=== PATIENT | female | born 2000 | race Caucasian/White ===

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

== ENCOUNTER 2018-01-16 06:02 | Emergency (ER) | payer OTHER, MEDICAID ==
[2018-01-16 06:43] LABS: ACETAMINOPHEN 146.7; ANION GAP 13.9; CHLORIDE,CL 108 mmol/L (101-111); SODIUM,NA 141 mmol/L (135-145)
[2018-01-16] MEDS ORDERED: Ondansetron 4 MG/2 ML SDV IV ONE (06:44)
[2018-01-16] MEDS ORDERED: Sodium Chloride 0.9% 1,000 ML IV SCH (06:45)
[2018-01-16] MEDS ORDERED: Potassium Chloride 10 MEQ in Premix Bag 1 BAG IV ONE (06:45)
--- NOTE | 2018-01-16 06:49 | EDM.PDOCBH ---
<Ina Mack Deepak - Last Filed: 01/16/18 07:04> ED HPI GENERAL MEDICAL PROBLEM - General Chief Complaint: Drug or Alcohol Abuse Stated Complaint: OVERDOSE [phone] Time Seen by Provider: 01/16/18 06:30 Source of Information: Reports: Patient, Family, RN Notes Reviewed History Limitations: Reports: No Limitations - History of Present Illness INITIAL COMMENTS - FREE TEXT/NARRATIVE: ED with "Anty" States patient texted 1 hour prior that she had taken a bunch of pill ( approximately 30 ibuprofen", Patient admits trying to hurt self. Has tried twicwe prior last one year ago. Is not on medication, No counseling. ETOH tonight few bears, Dev Francois shots and few mixed drinks. - Related Data Allergies Allergy/AdvReac Type Severity Reaction Status Date / Time No Known Allergies Allergy Verified 01/16/18 06:11 Home Meds: Home Meds . [No Known Home Meds] 05/31/13 [History] Past Medical History - Past Health History Medical/Surgical History: Denies Medical/Surgical History HEENT History: Reports: Impaired Vision Cardiovascular History: Reports: None Respiratory History: Reports: None Gastrointestinal History: Reports: None Genitourinary History: Reports: None [employer] History: Reports: None Musculoskeletal History: Reports: None Neurological History: Reports: None Psychiatric History: Reports: Addiction, Anxiety, Suicide Attempt, Suicidal Ideation Endocrine/Metabolic History: Reports: None Hematologic History: Reports: None Immunologic History: Reports: None Oncologic (Cancer) History: Reports: None Dermatologic History: Reports: None Social & Family History - Family History Family Medical History: Noncontributory - Tobacco Use Smoking Status *Q: Current Every Day Smoker Years of Tobacco use: 5 Packs/Tins Daily: 0.7 - Caffeine Use Caffeine Use: Reports: Coffee, Soda - Recreational Drug Use Recreational Drug Use: No ED EXAM, BEHAVIORAL HEALTH - Physical Exam Exam: See Below Exam Limited By: No Limitations General Appearance: Alert, Mild Distress Eye Exam: Bilateral Eye: EOMI, PERRL Throat/Mouth: Normal Inspection Head: Atraumatic, Normocephalic Neck: Normal Inspection Respiratory/Chest: No Respiratory Distress, Lungs Clear Cardiovascular: Normal Peripheral Pulses, Regular Rate, Rhythm GI/Abdominal: Normal Bowel Sounds, Other (dry heaves) Extremities: Normal Inspection, Normal Range of Motion Neurological: Alert, Normal Cognition, Normal Gait, Oriented x 3, Slow Response to Commands Psychiatric: Alert, Oriented, Flat Affect, Suicidal Thoughts, Other (avoidant eye contact) Skin Exam: Warm, Dry, Intact, Normal color COURSE, BEHAVIORAL HEALTH COMP - Course Vital Signs: Last Vital Signs Temp 37.1 C 01/16/18 06:05 Pulse 103 H 01/16/18 06:05 Resp 18 01/16/18 06:05 BP 127/84 01/16/18 06:05 Pulse Ox 99 01/16/18 06:05 Orders, Labs, Meds: Active Orders 24 hr Category Date Time Status EKG Documentation Completion [RC] STAT Care 01/16/18 06:14 Active Peripheral IV Care [RC] . DIRECTED Care 01/16/18 07:30 Active ACETAMINOPHEN [CHEM] Stat Lab 01/16/18 10:30 Ordered BASIC METABOLIC PANEL,BMP [CHEM] Stat Lab 01/16/18 10:30 Ordered DRUG SCREEN URINE BIORAD [URCHEM] Stat Lab 01/16/18 06:56 Ordered HCG QUALITATIVE,URINE [URCHEM] Stat Lab 01/16/18 06:56 Ordered INR,PT,PROTHROMBIN TIME [COAG] Stat Lab 01/16/18 07:46 Ordered PTT,PARTIAL THROMBOPLSTIN TIME [COAG] Stat Lab 01/16/18 07:46 Ordered UA W/MICROSCOPIC [URIN] Stat Lab 01/16/18 06:56 Ordered Sodium Chloride 0.9% [Normal Saline] 1,000 ml Med 01/16/18 07:30 Active IV .BOLUS Sodium Chloride 0.9% [Normal Saline] 1,000 ml Med 01/16/18 06:45 Active IV ASDIRECTED Sodium Chloride 0.9% [Saline Flush] Med 01/16/18 07:30 Active 10 ml FLUSH ASDIRECTED PRN Peripheral IV Insertion Adult [OM.PC] Stat Oth 01/16/18 07:30 Ordered Suicide Precautions [OM.PC] Routine Oth 01/16/18 07:33 Ordered Medication Orders Sodium Chloride (Normal Saline) 1,000 mls @ 200 mls/hr IV ASDIRECTED CHU Last Admin: 01/16/18 06:37 Dose: 200 mls/hr Sodium Chloride (Normal Saline) 1,000 mls @ 999 mls/hr IV .BOLUS ONE Stop: 01/16/18 08:30 Sodium Chloride (Saline Flush) 10 ml FLUSH ASDIRECTED PRN PRN Reason: Keep Vein Open Laboratory Tests 01/16/18 01/16/18 01/16/18 Range/Units 06:13 06:13 06:56 WBC 7.2 (5.0-10.0) 10^3/uL RBC 4.42 (4.2-5.4) 10^6/uL Hgb 13.5 (12.0-16.0) g/dL Hct 40.1 (37.0-47.0) % MCV 90.7 (80-100) fL MCH 30.5 (27.0-34.0) pg MCHC 33.7 (33.0-35.0) g/dL Plt Count 265 (150-450) 10^3/uL Neut % (Auto) 49.4 (42.2-75.2) % Lymph % (Auto) 41.9 (20.5-50.1) % [place] % (Auto) 6.2 (2-8) % Eos % (Auto) 2.4 (1.0-3.0) % Baso % (Auto) 0.1 (0.0-1.0) % Sodium 141 (135-145) mmol/L Potassium 2.9 L (3.6-5.0) mmol/L Chloride 108 (101-111) mmol/L Carbon Dioxide 22.0 (21.0-31.0) mmol/L Anion Gap 13.9 BUN 7 (7-18) mg/dL Creatinine 0.6 (0.6-1.3) mg/dL Est Cr Clr Drug Dosing 129.59 mL/min Estimated GFR (MDRD) > 60 BUN/Creatinine Ratio 11.66 Glucose 132 H (74-105) mg/dL Calcium 8.7 (8.4-10.2) mg/dl Total Bilirubin 0.3 (0.2-1.0) mg/dL AST 24 (10-42) IU/L ALT 22 (10-60) IU/L Alkaline Phosphatase 75 (42-121) IU/L Total Protein 7.8 (6.7-8.2) g/dl Albumin 4.3 (3.2-5.5) g/dl Globulin 3.5 Albumin/Globulin Ratio 1.23 Urine Color Yellow (YELLOW) Urine Appearance Clear (CLEAR) Urine pH 6.5 (5.0-9.0) Ur Specific [place] <= 1.005 (1.005-1.030) Urine Protein Negative (NEGATIVE) Urine Glucose (UA) Negative (NEGATIVE) Urine Ketones Negative (NEGATIVE) Urine Occult Blood Negative (NEGATIVE) Urine Nitrite Negative (NEGATIVE) Urine Bilirubin Negative (NEGATIVE) Urine Urobilinogen 0.2 (0.2-1.0) mg/dL Ur Leukocyte Esterase Negative (NEGATIVE) Urine RBC Not seen /HPF Urine WBC Not seen (0-5/HPF) /HPF Ur Epithelial Cells Few /HPF Urine Bacteria Not seen (0-FEW/HPF) /HPF Urine Mucus Rare /LPF Urine HCG, Qual Salicylates < 4 Urine Opiates Screen (NEGATIVE) Ur Oxycodone Screen (NEGATIVE) Urine Methadone Screen (NEGATIVE) Acetaminophen 146.7 Ur Barbiturates Screen (NEGATIVE) U Tricyclic Antidepress (NEGATIVE) Ur Phencyclidine Scrn (NEGATIVE) Ur Amphetamine Screen (NEGATIVE) U Methamphetamines Scrn (NEGATIVE) Urine MDMA Screen (NEGATIVE) U Benzodiazepines Scrn (NEGATIVE) Urine Cocaine Screen (NEGATIVE) U Marijuana (THC) Screen (NEGATIVE) Ethyl Alcohol 149 mg/dL 01/16/18 01/16/18 Range/Units 06:56 06:56 WBC (5.0-10.0) 10^3/uL RBC (4.2-5.4) 10^6/uL Hgb (12.0-16.0) g/dL Hct (37.0-47.0) % MCV (80-100) fL MCH (27.0-34.0) pg MCHC (33.0-35.0) g/dL Plt Count (150-450) 10^3/uL Neut % (Auto) (42.2-75.2) % Lymph % (Auto) (20.5-50.1) % [place] % (Auto) (2-8) % Eos % (Auto) (1.0-3.0) % Baso % (Auto) (0.0-1.0) % Sodium (135-145) mmol/L Potassium (3.6-5.0) mmol/L Chloride (101-111) mmol/L Carbon Dioxide (21.0-31.0) mmol/L Anion Gap BUN (7-18) mg/dL Creatinine (0.6-1.3) mg/dL Est Cr Clr Drug Dosing mL/min Estimated GFR (MDRD) BUN/Creatinine Ratio Glucose (74-105) mg/dL Calcium (8.4-10.2) mg/dl Total Bilirubin (0.2-1.0) mg/dL AST (10-42) IU/L ALT (10-60) IU/L Alkaline Phosphatase (42-121) IU/L Total Protein (6.7-8.2) g/dl Albumin (3.2-5.5) g/dl Globulin Albumin/Globulin Ratio Urine Color (YELLOW) Urine Appearance (CLEAR) Urine pH (5.0-9.0) Ur Specific [place] (1.005-1.030) Urine Protein (NEGATIVE) Urine Glucose (UA) (NEGATIVE) Urine Ketones (NEGATIVE) Urine Occult Blood (NEGATIVE) Urine Nitrite (NEGATIVE) Urine Bilirubin (NEGATIVE) Urine Urobilinogen (0.2-1.0) mg/dL Ur Leukocyte Esterase (NEGATIVE) Urine RBC /HPF Urine WBC (0-5/HPF) /HPF Ur Epithelial Cells /HPF Urine Bacteria (0-FEW/HPF) /HPF Urine Mucus /LPF Urine HCG, Qual Negative Salicylates Urine Opiates Screen Negative (NEGATIVE) Ur Oxycodone Screen Negative (NEGATIVE) Urine Methadone Screen Negative (NEGATIVE) Acetaminophen Ur Barbiturates Screen Negative (NEGATIVE) U Tricyclic Antidepress Negative (NEGATIVE) Ur Phencyclidine Scrn Negative (NEGATIVE) Ur Amphetamine Screen Negative (NEGATIVE) U Methamphetamines Scrn Negative (NEGATIVE) Urine MDMA Screen Negative (NEGATIVE) U Benzodiazepines Scrn Negative (NEGATIVE) Urine Cocaine Screen Negative (NEGATIVE) U Marijuana (THC) Screen Negative (NEGATIVE) Ethyl Alcohol mg/dL Medications Generic Name Dose Route Start Last Admin Trade Name Freq PRN Reason Stop Dose Admin Sodium Chloride 1,000 mls @ 200 mls/hr 01/16/18 06:45 01/16/18 06:37 Normal Saline IV 200 mls/hr ASDIRECTED CHU Administration Sodium Chloride 1,000 mls @ 999 mls/hr 01/16/18 07:30 Normal Saline IV 01/16/18 08:30 .BOLUS ONE Sodium Chloride 10 ml 01/16/18 07:30 Saline Flush FLUSH ASDIRECTED PRN Keep Vein Open Discontinued Medications Generic Name Dose Route Start Last Admin Trade Name Freq PRN Reason Stop Dose Admin Acetylcysteine 8,250 mg 01/16/18 07:23 Acetadote 20% IV 01/16/18 07:24 ONETIME ONE Acetylcysteine 2,750 mg 01/16/18 07:28 Acetadote 20% IV 01/16/18 07:29 ONETIME ONE Charcoal 50 gm 01/16/18 07:30 01/16/18 07:42 Actidose-Aqua PO 01/16/18 07:31 50 gm ONETIME ONE Administration Potassium Chloride 10 meq/ 100 mls @ 100 mls/hr 01/16/18 06:45 01/16/18 06:50 Premix IV 01/16/18 07:44 100 mls/hr ONETIME ONE Administration Ondansetron HCl 4 mg 01/16/18 06:44 01/16/18 06:47 Zofran IV 01/16/18 06:45 4 mg ONETIME ONE Administration Departure - Departure Disposition: DC/Tfer to [facility] 02 Clinical Impression: Depressive disorder, Hypokalemia Acetaminophen overdose Qualifiers: Encounter type: initial encounter Injury intent: intentional self-harm Qualified Code(s): T39.1X2A - Poisoning by 4-Aminophenol derivatives, intentional self-harm, initial encounter Suicide attempt by acetaminophen overdose Qualifiers: Encounter type: initial encounter Qualified Code(s): T39.1X2A - Poisoning by 4- Aminophenol derivatives, intentional self-harm, initial encounter Acute alcohol intoxication Qualifiers: Complication of substance-induced condition: with unspecified complication Qualified Code(s): F10.929 - Alcohol use, unspecified with intoxication, unspecified - Discharge Information Forms: ED Department Discharge, Interfacility Transfer EMTALA - My Orders Last 24 Hours: My Active Orders 01/16/18 07:30 Peripheral IV Care [RC] . DIRECTED Sodium Chloride 0.9% [Normal Saline] 1,000 ml IV .BOLUS Sodium Chloride 0.9% [Saline Flush] 10 ml FLUSH ASDIRECTED PRN Peripheral IV Insertion Adult [OM.PC] Stat 01/16/18 07:33 Suicide Precautions [OM.PC] Routine 01/16/18 07:46 INR,PT,PROTHROMBIN TIME [COAG] Stat PTT,PARTIAL THROMBOPLSTIN TIME [COAG] Stat - Assessment/Plan Last 24 Hours: My Active Orders 01/16/18 07:30 Peripheral IV Care [RC] . DIRECTED Sodium Chloride 0.9% [Normal Saline] 1,000 ml IV .BOLUS Sodium Chloride 0.9% [Saline Flush] 10 ml FLUSH ASDIRECTED PRN Peripheral IV Insertion Adult [OM.PC] Stat 01/16/18 07:33 Suicide Precautions [OM.PC] Routine 01/16/18 07:46 INR,PT,PROTHROMBIN TIME [COAG] Stat PTT,PARTIAL THROMBOPLSTIN TIME [COAG] Stat <Franki Morales - Last Filed: 01/16/18 08:12> ED HPI GENERAL MEDICAL PROBLEM - General Source of Information: Reports: Old Records - History of Present Illness INITIAL COMMENTS - FREE TEXT/NARRATIVE: I assumed care of pt from Ina MABRY at 0700HR shift change. It has now been determined that the pt took Acetaminophen 500mg #30 tablets (15g) at approx. 0530HRS this morning. She admits to drinking about 4 beers and a few other drinks between last evening and 0330HRS this morning. Pt denies taking any other medications, drugs, or chemicals. Pt has a Hx of multiple prior suicide attempts. Onset: Today Onset Date: 01/16/18 Onset Time: 05:30 Location: Reports: Generalized Quality: Reports: Other (denies pain) Severity: Severe Improves with: Reports: None Worsens with: Reports: None Associated Symptoms: Reports: No Other Symptoms Past Medical History Psychiatric History: Reports: Depression Social & Family History - Alcohol Use Alcohol Use History: Yes Alcohol Use Frequency: Binges - Living Situation & Occupation Living situation: Reports: with Family ED ROS GENERAL - Review of Systems Review Of Systems: ROS reveals no pertinent complaints other than HPI. ED EXAM, BEHAVIORAL HEALTH - Physical Exam General Appearance: WD/WN Eye Exam: Bilateral Eye: Normal Inspection Nose: Normal Inspection, Normal Mucosa, No Blood Throat/Mouth: Normal Inspection, Normal Lips, Normal Teeth, Normal Gums, Normal Oropharynx, Normal Voice, No Airway Compromise Head: Atraumatic, Normocephalic Neck: Normal Inspection, Supple, Non-Tender, Full Range of Motion Respiratory/Chest: No Respiratory Distress, Lungs Clear, Normal Breath Sounds, No Accessory Muscle Use, Chest Non-Tender Cardiovascular: Regular Rate, Rhythm, Tachycardia GI/Abdominal: Normal Bowel Sounds, Soft, No Distention, Tender (mild epigastric tenderness) (Female) Exam: Deferred Rectal (Female) Exam: Deferred Back Exam: Normal Inspection Neurological: Alert, CN II-XII Intact, Normal Cognition, No Motor/Sensory Deficits, Oriented x 3 Psychiatric: Oriented, Depressed Mood, Flat Affect, Tearful, Suicidal Plan, Suicidal Thoughts Skin Exam: Warm, Dry, Intact, Normal color, No rash. No: Diaphoretic, Ecchymosis, Needle kent, Petechiae, Signs of self injury, Wound/incision EKG INTERPRETATION EKG Date: 01/16/18 Time: 06:10 Rhythm: Other (SR) Rate (Beats/Min): 99 [place]: Normal P-Wave: Present QRS: Normal ST-T: Normal QT: Normal Comparison: NA - No Prior EKG COURSE, BEHAVIORAL HEALTH COMP - Course Discharge vs Psych Eval/Treatment:: 01/16/18 07:56 Acetaminophen level at approx. 1 hour post ingestion 146.7 therefore NAC IV protocol initiated w/1st bag 150mg/kg (8250mg) IV over one hour, and 2nd bag 50mg/kg over 4 hours. Pt will be transferred to [facility] with Dr. Camp accepting. Departure - Departure Time of Disposition: 08:00 Condition: Serious
[2018-01-16] MEDS ORDERED: Acetylcysteine 20% 200 MG/ML 30 ML SDV IV ONE ×2 (07:23→07:28)
[2018-01-16] MEDS ORDERED: Sodium Chloride 0.9% 1,000 ML IV ONE (07:30)
[2018-01-16] MEDS ORDERED: Sodium Chloride 0.9% 10 ML Syringe FLUSH PRN (07:30)
[2018-01-16] MEDS ORDERED: Activated Charcoal/Water Susp 50 GM/240 ML Tube PO ONE (07:30)
[2018-01-16 08:07] VITALS: BP 110/85
[2018-01-16 10:37] LABS: ACETAMINOPHEN 51.1; ANION GAP 11.5; CHLORIDE,CL 109 mmol/L (101-111); SODIUM,NA 138 mmol/L (135-145)
--- NOTE | 2018-01-19 08:56 | EKG ---
01/16/2018- ANNAMARIA GARNETT - FINDINGS: A 12-lead EKG shows normal sinus rhythm with no significant ST elevation or ST depression noted on this 12-lead EKG except for nonspecific ST-T wave changes noted on lead V1. [facility] /[id number]
== END 2018-01-16 10:18 ==
LOC: DL.ED 06:02
DX: T39.1X2A Poisoning by 4-Aminophenol derivatives, intentional self-harm, initial encounter (principal); F10.129 Alcohol abuse with intoxication, unspecified; F17.210 Nicotine dependence, cigarettes, uncomplicated; Y90.6 Blood alcohol level of 120-199 mg/100 ml
CPT/HCPCS: 36415; 80048; 80053; 80305; 81001; 81025; 85025; 85610; 85730; 93005; 93010; 96365; 96366; 96367; 96375; 99284; 99285; G0480; J2405; J3480; J7030; J7050

== ENCOUNTER 2018-02-04 17:43 | Emergency (ER) | payer MEDICAID ==
[2018-02-04 18:17] VITALS: BP 118/73
[2018-02-04 19:06] LABS: ANION GAP 14.6; CHLORIDE,CL 102 mmol/L (101-111); SODIUM,NA 139 mmol/L (135-145)
--- NOTE | 2018-02-04 19:18 | EDM.PDOC ---
ED HPI GENERAL MEDICAL PROBLEM - General Chief Complaint: [employer] Problem Stated Complaint: VAGINAL BLEADING [id number] Time Seen by Provider: 02/04/18 19:11 Source of Information: Reports: Patient History Limitations: Reports: No Limitations - History of Present Illness INITIAL COMMENTS - FREE TEXT/NARRATIVE: c/o vag bleeding today. had period last week. just started on BCP. c/o some cramping. - Related Data Allergies Allergy/AdvReac Type Severity Reaction Status Date / Time No Known Allergies Allergy Verified 01/16/18 06:11 Home Meds: Home Meds . [No Known Home Meds] 05/31/13 [History] Past Medical History - Past Health History Medical/Surgical History: Denies Medical/Surgical History HEENT History: Reports: Impaired Vision Cardiovascular History: Reports: None Respiratory History: Reports: None Gastrointestinal History: Reports: None Genitourinary History: Reports: None [employer] History: Reports: None Musculoskeletal History: Reports: None Neurological History: Reports: None Psychiatric History: Reports: Addiction, Anxiety, Suicide Attempt, Suicidal Ideation Endocrine/Metabolic History: Reports: None Hematologic History: Reports: None Immunologic History: Reports: None Oncologic (Cancer) History: Reports: None Dermatologic History: Reports: None Social & Family History - Family History Family Medical History: Noncontributory - Tobacco Use Smoking Status *Q: Current Every Day Smoker Years of Tobacco use: 2 Packs/Tins Daily: 0.2 - Caffeine Use Caffeine Use: Reports: Soda, Tea - Alcohol Use Days Per Week of Alcohol Use: 2 Number of Drinks Per Day: 6 Total Drinks Per Week: 12 - Recreational Drug Use Recreational Drug Use: No - Living Situation & Occupation Living situation: Reports: with Family ED ROS GENERAL - Review of Systems Review Of Systems: ROS reveals no pertinent complaints other than HPI. ED EXAM, GI/ABD - Physical Exam Exam: See Below Exam Limited By: No Limitations General Appearance: Alert, WD/WN, No Apparent Distress Ears: Hearing Grossly Normal Throat/Mouth: Normal Voice, No Airway Compromise Head: Atraumatic Neck: Non-Tender, Full Range of Motion Respiratory/Chest: No Respiratory Distress Cardiovascular: Regular Rate, Rhythm GI/Abdominal Exam: Soft, Non-Tender Neurological: Alert, Oriented, Normal Cognition, Normal Gait, No Motor/Sensory Deficits Psychiatric: Normal Affect, Normal Mood Skin Exam: Warm, Dry, Normal Color Lymphatic: No Adenopathy Course - Vital Signs Last Recorded V/S: Last Vital Signs Temp 37.3 C 02/04/18 18:16 Pulse 101 H 02/04/18 18:16 Resp 16 02/04/18 18:16 BP 118/73 02/04/18 18:16 Pulse Ox 100 02/04/18 18:16 - Orders/Labs/Meds Orders: Active Orders 24 hr Category Date Time Status DRUG SCREEN URINE BIORAD [URCHEM] Stat Lab 02/04/18 18:45 Ordered HCG QUALITATIVE,URINE [URCHEM] Stat Lab 02/04/18 18:45 Ordered UA W/MICROSCOPIC [URIN] Stat Lab 02/04/18 18:44 Ordered Labs: Laboratory Tests 02/04/18 02/04/18 02/04/18 Range/Units 18:38 18:38 18:44 WBC 5.3 (5.0-10.0) 10^3/uL RBC 4.68 (4.2-5.4) 10^6/uL Hgb 14.2 (12.0-16.0) g/dL Hct 41.9 (37.0-47.0) % MCV 89.5 (80-100) fL MCH 30.3 (27.0-34.0) pg MCHC 33.9 (33.0-35.0) g/dL Plt Count 231 (150-450) 10^3/uL Neut % (Auto) 53.6 (42.2-75.2) % Lymph % (Auto) 34.0 (20.5-50.1) % [place] % (Auto) 8.3 H (2-8) % Eos % (Auto) 3.9 H (1.0-3.0) % Baso % (Auto) 0.2 (0.0-1.0) % Sodium 139 (135-145) mmol/L Potassium 3.6 (3.6-5.0) mmol/L Chloride 102 (101-111) mmol/L Carbon Dioxide 26.0 (21.0-31.0) mmol/L Anion Gap 14.6 BUN 9 (7-18) mg/dL Creatinine 0.7 (0.6-1.3) mg/dL Est Cr Clr Drug Dosing 111.08 mL/min Estimated GFR (MDRD) > 60 BUN/Creatinine Ratio 12.85 Glucose 85 (74-105) mg/dL Calcium 9.4 D (8.4-10.2) mg/dl Total Bilirubin 0.7 (0.2-1.0) mg/dL AST 21 (10-42) IU/L ALT 14 (10-60) IU/L Alkaline Phosphatase 73 (42-121) IU/L Total Protein 8.3 H (6.7-8.2) g/dl Albumin 4.8 (3.2-5.5) g/dl Globulin 3.5 Albumin/Globulin Ratio 1.37 Urine Color Yellow (YELLOW) Urine Appearance Clear (CLEAR) Urine pH 7.0 (5.0-9.0) Ur Specific [place] 1.015 (1.005-1.030) Urine Protein Negative (NEGATIVE) Urine Glucose (UA) Negative (NEGATIVE) Urine Ketones Negative (NEGATIVE) Urine Occult Blood Moderate H (NEGATIVE) Urine Nitrite Negative (NEGATIVE) Urine Bilirubin Negative (NEGATIVE) Urine Urobilinogen 1.0 (0.2-1.0) mg/dL Ur Leukocyte Esterase Negative (NEGATIVE) Urine RBC 5-10 H /HPF Urine WBC 0-5 (0-5/HPF) /HPF Ur Epithelial Cells Few /HPF Urine Bacteria Few (0-FEW/HPF) /HPF Urine HCG, Qual Urine Opiates Screen (NEGATIVE) Ur Oxycodone Screen (NEGATIVE) Urine Methadone Screen (NEGATIVE) Ur Barbiturates Screen (NEGATIVE) U Tricyclic Antidepress (NEGATIVE) Ur Phencyclidine Scrn (NEGATIVE) Ur Amphetamine Screen (NEGATIVE) U Methamphetamines Scrn (NEGATIVE) Urine MDMA Screen (NEGATIVE) U Benzodiazepines Scrn (NEGATIVE) Urine Cocaine Screen (NEGATIVE) U Marijuana (THC) Screen (NEGATIVE) 02/04/18 02/04/18 Range/Units 18:45 18:45 WBC (5.0-10.0) 10^3/uL RBC (4.2-5.4) 10^6/uL Hgb (12.0-16.0) g/dL Hct (37.0-47.0) % MCV (80-100) fL MCH (27.0-34.0) pg MCHC (33.0-35.0) g/dL Plt Count (150-450) 10^3/uL Neut % (Auto) (42.2-75.2) % Lymph % (Auto) (20.5-50.1) % [place] % (Auto) (2-8) % Eos % (Auto) (1.0-3.0) % Baso % (Auto) (0.0-1.0) % Sodium (135-145) mmol/L Potassium (3.6-5.0) mmol/L Chloride (101-111) mmol/L Carbon Dioxide (21.0-31.0) mmol/L Anion Gap BUN (7-18) mg/dL Creatinine (0.6-1.3) mg/dL Est Cr Clr Drug Dosing mL/min Estimated GFR (MDRD) BUN/Creatinine Ratio Glucose (74-105) mg/dL Calcium (8.4-10.2) mg/dl Total Bilirubin (0.2-1.0) mg/dL AST (10-42) IU/L ALT (10-60) IU/L Alkaline Phosphatase (42-121) IU/L Total Protein (6.7-8.2) g/dl Albumin (3.2-5.5) g/dl Globulin Albumin/Globulin Ratio Urine Color (YELLOW) Urine Appearance (CLEAR) Urine pH (5.0-9.0) Ur Specific [place] (1.005-1.030) Urine Protein (NEGATIVE) Urine Glucose (UA) (NEGATIVE) Urine Ketones (NEGATIVE) Urine Occult Blood (NEGATIVE) Urine Nitrite (NEGATIVE) Urine Bilirubin (NEGATIVE) Urine Urobilinogen (0.2-1.0) mg/dL Ur Leukocyte Esterase (NEGATIVE) Urine RBC /HPF Urine WBC (0-5/HPF) /HPF Ur Epithelial Cells /HPF Urine Bacteria (0-FEW/HPF) /HPF Urine HCG, Qual Negative Urine Opiates Screen Negative (NEGATIVE) Ur Oxycodone Screen Negative (NEGATIVE) Urine Methadone Screen Negative (NEGATIVE) Ur Barbiturates Screen Negative (NEGATIVE) U Tricyclic Antidepress Negative (NEGATIVE) Ur Phencyclidine Scrn Negative (NEGATIVE) Ur Amphetamine Screen Negative (NEGATIVE) U Methamphetamines Scrn Negative (NEGATIVE) Urine MDMA Screen Negative (NEGATIVE) U Benzodiazepines Scrn Negative (NEGATIVE) Urine Cocaine Screen Negative (NEGATIVE) U Marijuana (THC) Screen Negative (NEGATIVE) - Re-Assessments/Exams Free Text/Narrative Re-Assessment/Exam: 02/04/18 19:21 results discussed with pt. Departure - Departure Time of Disposition: 19:21 Disposition: Home, Self-Care 01 Condition: Good Clinical Impression: DUB (dysfunctional uterine bleeding) - Discharge Information Instructions: Dysfunctional Uterine Bleeding Forms: ED Department Discharge Additional Instructions: 1) rest and avoid vigorous activities 2) recheck if there is any change or concern 3) take tylenol or motrin for discomfort
== END 2018-02-04 19:27 | disposition home or self-care (01) ==
LOC: DL.ED 17:43
DX: N93.8 Other specified abnormal uterine and vaginal bleeding (principal); F17.210 Nicotine dependence, cigarettes, uncomplicated
CPT/HCPCS: 36415; 80053; 80305-QW; 81001; 81025; 85025; 99283

== ENCOUNTER 2019-09-01 01:17 | Inpatient (IN) | payer MEDICAID, OTHER ==
[2019-09-01] MEDS ORDERED: Lactated Ringers 1,000 ML IV ONE ×2 (01:36→02:24)
--- NOTE | 2019-09-01 02:20 | PCM.SN ---
- Free Text/Narrative Note: OB History and Physical 09/01/19 Chief Complaint: contractions HPI: Carolina is a 18 year old G1 at 39w3d based on 20w US who presents with contractions that started around 1900 last night. She reports they have been getting stronger and more frequent since that time. She noted she is still able to talk through some of them, but they are still getting stronger. Nothing is making them better. She reports active movement. She was monitored for 2 hours and progressed from 1+ to 3 cm dilated. ROS: Negative for headache, nausea, vomiting, diarrhea, fever, chills, hematuria , dysuria, loss of fluid or bleeding per vagina. Allergies: NKDA Medications: , iron, famotidine Medical Hx: etoh abuse, tylenol overdose, depression Surgical Hx: None Family Hx: Mom had depression and anxiety. Negative for bleeding/clotting disorders, defects or congenital anomalies. OB Hx: G1 Social Hx: Denies smoking, quit early in , h/o etoh abuse, pt currently denies. FOB is Roque Apodaca. Lives in with [facility] [place]. Physical address [phone] . Labs: Blood Type: O Positive Rubella: Immune HBSAg: Negative GBS: Negative Gonorrhea/Chlamydia: Negative HIV: Nonreactive RPR: Nonreactive Hep C: Negative Physical Exam: Vitals: 133/88, HR 90, Temp 97.3, RR 18 Gen: No distress CV: Well-perfused, 2+ distal pulses, regular rate and rhythm, no audible murmurs Resp: Non-labored, symmetrical chest expansion, clear to auscultation Abd: gravid, soft, non tender Ext: Moves all extremities, no edema. SVE: 1+/80/-1 FHT: 120, moderate variability, accelerations present, no decelerations appreciated CTX: Q 2-3 mins Assessment: Carolina is a 18 year old G1 at 39w3d based on 20w US who presents with active labor Cat I Strip. Plan: - admit to labor and delivery - routine cares - may have intrathecal if/when desired - will follow closely Yulisa Loya MD
[2019-09-01] MEDS ORDERED: Lidocaine 1% 30 ML SDV INJECT PRN (02:24)
[2019-09-01] MEDS ORDERED: Acetaminophen 325 MG Tab PO PRN ×2 (02:24→16:34)
[2019-09-01] MEDS ORDERED: Methylergonovine 0.2 MG/1 ML Amp IM PRN (02:24)
[2019-09-01] MEDS ORDERED: Carboprost Tromethamine 250 MCG/1 ML Amp IM PRN (02:24)
[2019-09-01] MEDS ORDERED: Misoprostol 400 MCG (4 X 100 MCG TAB) RECTAL PRN (02:24)
[2019-09-01] MEDS ORDERED: Sodium Chloride 0.9% 10 ML Syringe FLUSH PRN ×2 (02:24→16:34)
[2019-09-01] MEDS ORDERED: fentaNYL 100 MCG/2 ML SDV IVPUSH PRN (02:24)
[2019-09-01] MEDS ORDERED: Ondansetron 4 MG/2 ML SDV IVPUSH PRN (02:24)
[2019-09-01] MEDS ORDERED: Tranexamic Acid 1,000 MG in Sodium Chloride 0.9% 100 ML IV PRN (02:24)
[2019-09-01] MEDS ORDERED: Oxytocin/Normal Saline 30 UNIT/500 ML BAG IV SCH (02:30)
[2019-09-01] MEDS: Lactated Ringers 1,000 ML IV SCH ×2 (07:12→08:02)
[2019-09-01] MEDS ORDERED: fentaNYL 100 MCG/2 ML SDV ONE (07:24)
[2019-09-01] MEDS ORDERED: EPINEPHrine 1 MG/1 ML Amp ONE ×2 (07:24→10:39)
--- NOTE | 2019-09-01 08:05 | PCM.PRNOTE ---
- Free Text/Narrative Note: Requested to provide analgesia to full term patient in severe pain. Upon entering the room, patient is sitting on edge of bed complaining of severe abdominal/pelvic pain and discomfort. Procedure was discussed with patient including adverse outcomes and expectations. Pt consented to analgesia, SAB/ IT. Pt placed into a proper sitting position. Landmarks for SAB/IT were identified and marked. Hands were washed and appropriate PPE was applied. Back was prepped with betadine x3. A sterile, transparent, fenestrated drape was applied. Excess betadine was removed. Using 3 mL of a 1% lidocaine solution , a skin wheel was placed at the L2/L3 interspace. A 24 ga (4 inch) Pencan spinal needle was inserted until positive for CSF. Negative for heme or paresthesias. Injected fentanyl 30 mcg, sufentanil 25 mcg, and 7.5 mg of a 0.75 % bupivacaine solution with an epi wash. Pt was placed left lateral position for approximately 20 minutes. There were zero complications or adverse outcomes. Will continue to monitor. Procedure Date & Time: 09/01/19 [id number]
[2019-09-01] MEDS ORDERED: fentaNYL 100 MCG/2 ML SDV ITHECAL ONE (10:39)
[2019-09-01] MEDS ORDERED: Bupivacaine 0.75%/D5W 2 ML Amp ISPINAL ONE (10:39)
[2019-09-01] MEDS ORDERED: Lidocaine 1% 30 ML SDV ONE (10:39)
--- NOTE | 2019-09-01 14:40 | PCM.DEL ---
L & D Note - General Info Date of Service: 09/01/19 (1241) Mother's Due Date: 09/05/19 - Delivery Note Labor: Spontaneous Delivery Outcome: Livebirth Delivery Method: Spontaneous Vaginal Delivery-Single Infant Delivery Mode: Spontaneous Presentation: Right Occiput Anterior (RANDALL) Nuchal Cord: Present Anesthesia Type: Intrathecal Anesthetic: Lidocaine (Xylocaine) 1% Plain Local Anesthetic Volume: 5cc Amniotic Fluid Description: Clear Laceration: 3rd Degree, Labial, Perineal Suture type: Vicryl Suture size: 4-0 Placenta: Intact, Spontaneous Cord: 3 Vessels Estimated Blood Loss: 350 Resuscitation Needed: No National City: Suctioned Score 1 min: 8 Score 5 min: 9 Second Stage Interventions: Reports: Pushing Effectively Delivery Comments (Free Text/Narrative):: Carolina is a 18 yo G1 at 39w3d EGA who presented with active labor. Category 1 tracing upon admission. She was dilated to 3 cm upon admission. She progressed without augmentation. Artificial rupture of membranes at 0955 with clear fluid. She was complete at 1145. She began pushing at approximately 1150. Delivered a liveborn male at 1241. Vigorous with spontaneous cry. Apgars of 8 and 9. weight 3330 g. Placenta delivered spontaneously intact with a 3 vessel cord. IV Pitocin was started shortly after delivery of the placenta. EBL 350 mL. Third degree perineal laceration repaired with 4-0 Vicryl suture. Bilateral labial lacerations repaired with 4-0 Vicryl suture. Hemostasis confirmed. Mother and infant doing well. - General Info Date of Service: 09/01/19 Functional Status: Reports: Pain Controlled - Patient Data Weight - Most Recent: 72.121 kg - Problem List Review Problem List Initiated/Reviewed/Updated: Yes - Assessment Assessment:: 18 yo G1 now P1 at 39w3d who presented in active labor and delivered a viable male infant via with a third degree laceration and bilateral labial tears repaired who is doing well. - Plan Plan:: Plan: - routine cares - stool softeners - encouraged ice and ibuprofen for perineal swelling - percocet available if needed - will follow closely Yulisa Loya MD
[2019-09-01] MEDS ORDERED: Simethicone 80 MG Tab.Chew PO PRN (16:34)
[2019-09-01] MEDS ORDERED: Benzocaine/Menthol 20%-0.5% Spray 56 GM Canister TOP PRN (16:34)
[2019-09-01] MEDS ORDERED: Acetaminophen/oxyCODONE 325-5 MG Tab PO PRN (16:34)
[2019-09-01] MEDS ORDERED: Zolpidem 5 MG Tab PO PRN (16:34)
[2019-09-01] MEDS ORDERED: Oxytocin 10 Units/1 ML SDV IM PRN (16:34)
[2019-09-01] MEDS: Docusate Sodium 100 MG Cap PO PRN (19:13)
[2019-09-02] MEDS: Prenatal Multivitamin with Calcium/Folic Acid/Iron Tab PO SCH (08:34)
[2019-09-02] MEDS: Docusate Sodium 100 MG Cap PO PRN ×2 (08:34→20:05)
[2019-09-02] MEDS: Ibuprofen 800 MG Tab PO PRN ×2 (08:34→20:05)
--- NOTE | 2019-09-02 09:57 | PCM.SN ---
- Free Text/Narrative Note: Post Delivery Day #1 09/02/19 Subjective: Patient is ambulating without assistance and tolerating oral intake. Her pain has been well-controlled, and her bleeding has been minimal. She has not had nausea, vomiting, blurred vision, diarrhea, shortness of breath, or any other complaints. She is . Her bottom is still pretty sore. Objective: Vitals stable Gen: No distress CV: Well-perfused, 2+ distal pulses Resp: Non-labored, symmetrical chest expansion Abd: Fundus is firm and below umbilicus. Ext: Moves all extremities Well, no edema. Assessment: Status post ( day #1) who is doing well. Partial 3rd degree laceration and bilateral labial tears s/p repair Plan: - Routine nursing - vitamin - Encourage - Likely discharge tomorrow Yulisa Loya MD
[2019-09-03] MEDS: Ibuprofen 800 MG Tab PO PRN (09:03)
[2019-09-03] MEDS: Prenatal Multivitamin with Calcium/Folic Acid/Iron Tab PO SCH (09:03)
[2019-09-03] MEDS: Docusate Sodium 100 MG Cap PO PRN (09:03)
[2019-09-03 09:20] VITALS: BP 105/64; PULSE 89
--- NOTE | 2019-09-03 09:26 | PCM.SN ---
- Free Text/Narrative Note: Progress Note/Discharge Summary Admit date: 09/01/19 Discharge date: 09/03/19 Delivering Physician: Dr. Loya Discharging Physician: Dr. Loya Admission Diagnoses: 18 yo at 39w3d Active Labor h/o etoh and drug use prior to Summary of Hospital Course: Carolina is a 18 yo G1 at 39w3d EGA who presented with active labor. Category 1 tracing upon admission. She was dilated to 3 cm upon admission. She progressed without augmentation. Artificial rupture of membranes at 0955 with clear fluid. She was complete at 1145. She began pushing at approximately 1150. Delivered a liveborn male infant at 1241. Vigorous infant with spontaneous cry. Apgars of 8 and 9. weight 3330 g. Placenta delivered spontaneously intact with a 3 vessel cord. IV Pitocin was started shortly after delivery of the placenta. EBL 350 mL. Third degree perineal laceration repaired with 4-0 Vicryl suture. Bilateral labial lacerations repaired with 4-0 Vicryl suture. Hemostasis confirmed. Mother and doing well. The patient had an unremarkable course. By day 2, the patient was doing well; ambulating, voiding, and tolerating general diet. Her pain was well controlled with oral pain medications, and was she was discharged to home. Admission hemoglobin was 12.6 gm/dL. Discharge Exam: Gen: No distress CV: Well-perfused, 2+ distal pulses Resp: Non-Labored, symmetrical chest expansion Abd: Fundus is firm and below umbilicus. Ext: Moves all extremities well, no edema. Discharge (or Final) Diagnoses: 18 yo at 39w3d h/o etoh and drug use prior to Normal Spontaneous Vaginal Delivery Third degree perineal laceration and bilateral labial lacerations repaired Discharge Details: Admission Condition: good Discharged Condition: good Disposition: Home Discharge Medications: over the counter ibuprofen Diet: regular diet Activity: no heavy lifting for 2 weeks, pelvic rest for 6 weeks. Follow-up with Dr. Loya in 6-8 weeks for visit. Yulisa Loya MD
== END 2019-09-03 10:40 | disposition home or self-care (01) | DRG 768 ==
LOC: DL.OBCHECK 01:17 → DL.OB 02:26 → OBSVTOIN 12:41
PROVIDERS: ADMIT Family Medicine; ATTEND Family Medicine
PROC: 10E0XZZ Delivery of Products of Conception, External Approach (ICD-10-PCS; principal; 2019-09-01)
PROC: 0DQR0ZZ Repair Anal Sphincter, Open Approach (ICD-10-PCS; 2019-09-01)
DX: O62.9 Abnormality of forces of labor, unspecified (principal); Z37.0 Single live birth; O70.20 Third degree perineal laceration during delivery, unspecified; Z3A.39 39 weeks gestation of pregnancy
CPT/HCPCS: 36415; 51701; 59409; 76815; 80305-QW; 85027; A9270-GY; J0171; J2001; J2405; J2590; J3010; J7120

== ENCOUNTER 2022-11-08 03:45 | Emergency (ER) | payer BC ==
[2022-11-08] MEDS ORDERED: Ketorolac 30 MG/ML SDV IM ONE (03:58)
[2022-11-08 06:23] VITALS: BP 117/67; PULSE 78
== END 2022-11-08 06:05 | disposition home or self-care (01) ==
LOC: DL.ED 03:45
DX: S02.2XXA Fracture of nasal bones, initial encounter for closed fracture (principal); S00.83XA Contusion of other part of head, initial encounter; M95.0 Acquired deformity of nose; Y04.0XXA Assault by unarmed brawl or fight, initial encounter
CPT/HCPCS: 70450; 70486; 96372; 99283; 99284; J1885

== ENCOUNTER 2024-10-15 14:52 | Emergency (ER) | payer BC ==
[2024-10-15 15:04] VITALS: BP 112/77; PULSE 106
== END 2024-10-15 15:08 | disposition left against medical advice (07) ==
LOC: DL.ED 14:52
DX: Z53.21 Procedure and treatment not carried out due to patient leaving prior to being seen by health care provider (principal)